=== PATIENT | male | born 1930 | race Caucasian/White ===

== ENCOUNTER 2018-01-15 05:03 | Inpatient (IN) | payer MEDICARE, MEDICAID ==
[~2018-01-15] VITALS: Ht 177.8 cm; Wt 86.8 kg
[~2018-01-15 05:03] MED LIST: ASPI-515 PO; CLOP75TA PO; FAMO-79 PO; FENO145T30 PO; FURO20TA3 PO; HYDR-882 PO; ISOS30TA PO; ISOS60TA36 PO; LISI-466 PO; METO25TA35 PO; METO50TA82 PO; MULT-208 PO; NIAC500T9 PO; NITR0.4T SL; POTA10TA5 PO; RANO10002 PO; SIMV40TA PO; TAMS-11 PO
[2018-01-15 06:41] VITALS: BP 111/84
[2018-01-15] MEDS ORDERED: EZET10TA18 PO (07:14)
[2018-01-15] MEDS ORDERED: LOSA25TA6 PO (07:14)
[2018-01-15] MEDS ORDERED: POTA10CA PO (07:14)
[2018-01-15] MEDS ORDERED: TEMAZEPAM 15 MG CAPSULE PO PRN (08:30)
[2018-01-15] MEDS ORDERED: ONDANSETRON 2MG/ML, 2ML IVPush PRN (08:30)
[2018-01-15] MEDS ORDERED: LABETALOL 5MG/ML, 20ML IVPush PRN (08:30)
[2018-01-15] MEDS ORDERED: ACETAMINOPHEN 325 MG TABLET PO PRN (08:30)
[2018-01-15] MEDS ORDERED: ONDANSETRON ODT 4 MG PO PRN (08:30)
[2018-01-15] MEDS ORDERED: NITROGLYCERIN 0.4 MG BOTTLE (25 TABS) SL SCH (08:30)
[2018-01-15] MEDS ORDERED: NITROGLYCERIN 0.4 MG BOTTLE (25 TABS) SL PRN (08:30)
[2018-01-15 09:10] LABS: ANION GAP 9 mmol/L (5-15); CALCIUM 9.3 mg/dL (8.5-10.1); CHLORIDE 108 mmol/L (98-107); CHOLESTEROL, TOTAL 93 mg/dL (140-239); CREATININE 1.48 mg/dL (0.7-1.3); TRIGLYCERIDES 153 mg/dL (50-200); VLDL CHOLESTEROL 31 mg/dL (0-25)
[2018-01-15 09:14] LABS: CHOL/HDL RATIO 1.8; HDL CHOL % 57 % (26-37); HDL CHOLESTEROL (DIRECT) 53 mg/dL (40-60); LDL CHOLESTEROL,CALCULATED 9 mg/dL (54-169); LDL/HDL RATIO 0.2 (0.5-3.0); TROPONIN I 0.374 ng/mL (0.000-0.045)
[2018-01-15] MEDS: FAMOTIDINE 20 MG TABLET PO SCH ×2 (09:36→19:31)
[2018-01-15] MEDS: RANOLAZINE 500 MG TAB.ER.12H PO SCH ×2 (09:36→19:31)
[2018-01-15] MEDS: ASPIRIN 81 MG TABLET EC PO SCH (09:36)
[2018-01-15] MEDS: LOSARTAN 25MG TABLET PO SCH (09:36)
[2018-01-15] MEDS: EZETIMIBE 10 MG TABLET PO SCH (09:36)
[2018-01-15] MEDS: METOPROLOL TARTRATE 25 MG TABLET PO SCH ×2 (09:37→19:31)
[2018-01-15 13:00] VITALS: BP 104/65
[2018-01-15 19:25] VITALS: BP 113/68
[2018-01-15] MEDS ORDERED: SIMVASTATIN 40 MG TABLET PO SCH (21:00)
[2018-01-16 01:11] VITALS: BP 109/65
[2018-01-16 06:50] VITALS: BP 118/73
[2018-01-16] MEDS: METOPROLOL TARTRATE 25 MG TABLET PO SCH ×2 (09:00→20:45)
[2018-01-16] MEDS: FAMOTIDINE 20 MG TABLET PO SCH ×2 (09:08→20:44)
[2018-01-16] MEDS: LOSARTAN 25MG TABLET PO SCH (09:09)
[2018-01-16] MEDS: RANOLAZINE 500 MG TAB.ER.12H PO SCH ×2 (09:09→20:44)
[2018-01-16] MEDS: ASPIRIN 81 MG TABLET EC PO SCH (09:09)
[2018-01-16] MEDS: EZETIMIBE 10 MG TABLET PO SCH (09:09)
[2018-01-16] MEDS ORDERED: REGADENOSON 0.4 MG/5 ML SYRINGE ONE (11:09)
[2018-01-16 11:25] LABS: TROPONIN I 0.079 ng/mL (0.000-0.045)
[2018-01-16 13:11] VITALS: BP 155/75
[2018-01-16] MEDS: HEPARIN 5,000 UNITS/ML, 1ML SQ SCH ×2 (14:57→22:56)
[2018-01-16 20:39] VITALS: BP 103/70
[2018-01-16] MEDS: ATORVASTATIN 40 MG TABLET PO SCH (20:45)
[2018-01-17 02:41] VITALS: BP 99/63
[2018-01-17 05:18] LABS: BASOPHILS # (AUTO) 0.05 x10^3/uL (0-0.1); BASOPHILS % (AUTO) 1 % (0-1); EOSINOPHILS # (AUTO) 0.24 x10^3/uL (0-0.4); EOSINOPHILS % (AUTO) 3 % (1-7); LYMPHOCYTES # (AUTO) 2.94 x10^3/uL (1-3.4); LYMPHOCYTES % (AUTO) 36 % (22-44); MD NO; MEAN CORPUSCULAR HGB CONC 33.4 g/dL (33.2-36.2); MEAN CORPUSCULAR VOLUME 92.8 fL (81-97); MEAN PLATELET VOLUME 9.1 fL (7.4-10.4); MONOCYTES # (AUTO) 0.88 x10^3/uL (0.2-0.8); MONOCYTES % (AUTO) 11 % (2-9); NEUTROPHILS % (AUTO) 49 % (42-75); PLATELET COUNT 175 x10^3/uL (130-400); RED BLOOD COUNT 4.59 x10^6/uL (4.38-5.82); RED CELL DISTRIBUTION WIDTH 13.8 % (9.4-14.8)
[2018-01-17 05:25] LABS: ALBUMIN 3.4 g/dL (3.4-5.0); ANION GAP 9 mmol/L (5-15); CALCIUM 8.4 mg/dL (8.5-10.1); CHLORIDE 110 mmol/L (98-107)
[2018-01-17 05:30] LABS: ALANINE AMINOTRANSFERASE 18 U/L (12-78); ALKALINE PHOSPHATASE 54 U/L (45-117); BILIRUBIN,TOTAL 0.5 mg/dL (0.2-1.0); CREATININE 1.31 mg/dL (0.7-1.3); TOTAL PROTEIN 6.3 g/dL (6.4-8.2)
[2018-01-17] MEDS: HEPARIN 5,000 UNITS/ML, 1ML SQ SCH ×3 (06:30→23:12)
[2018-01-17 07:34] VITALS: BP 124/76
[2018-01-17] MEDS: EZETIMIBE 10 MG TABLET PO SCH (08:14)
[2018-01-17] MEDS: FAMOTIDINE 20 MG TABLET PO SCH ×2 (08:14→21:27)
[2018-01-17] MEDS: ASPIRIN 81 MG TABLET EC PO SCH (08:14)
[2018-01-17] MEDS: METOPROLOL TARTRATE 25 MG TABLET PO SCH ×2 (08:16→21:27)
[2018-01-17] MEDS: RANOLAZINE 500 MG TAB.ER.12H PO SCH ×2 (08:16→21:27)
[2018-01-17] MEDS: LOSARTAN 25MG TABLET PO SCH (08:17)
[2018-01-17] MEDS ORDERED: SODIUM CHLORIDE 0.9% 1,000 ML IV ONE (10:06)
[2018-01-17] MEDS ORDERED: TICAGRELOR 90 MG TABLET ONE (12:53)
[2018-01-17] MEDS ORDERED: VERAPAMIL 2.5 MG/ML, 2ML ONE (12:53)
[2018-01-17] MEDS ORDERED: BIVALIRUDIN 250 MG ONE ×2 (12:53→14:49)
[2018-01-17] MEDS ORDERED: FENTANYL PF 100 MCG/2ML ONE (12:53)
[2018-01-17] MEDS ORDERED: HEPARIN 1,000 UNITS/ML, 10ML ONE (12:54)
[2018-01-17] MEDS ORDERED: MIDAZOLAM 1 MG/ML, 2ML ONE ×2 (12:55→14:06)
[2018-01-17] MEDS ORDERED: LIDOCAINE-MPF 2%, 2ML ONE (12:55)
[2018-01-17] MEDS ORDERED: SODIUM CHLORIDE 0.9% 1,000 ML IV SCH (14:49)
[2018-01-17 15:00] VITALS: BP 170/88
[2018-01-17 18:42] VITALS: BP 154/74
[2018-01-17] MEDS: ATORVASTATIN 40 MG TABLET PO SCH (21:27)
[2018-01-17] MEDS: TICAGRELOR 90 MG TABLET PO SCH (21:27)
[2018-01-18 02:00] VITALS: BP 134/68
[2018-01-18 05:32] LABS: ALBUMIN 3.2 g/dL (3.4-5.0); ANION GAP 10 mmol/L (5-15); CALCIUM 8.3 mg/dL (8.5-10.1); CHLORIDE 113 mmol/L (98-107)
[2018-01-18 05:34] LABS: CREATININE 1.24 mg/dL (0.7-1.3)
[2018-01-18] MEDS: HEPARIN 5,000 UNITS/ML, 1ML SQ SCH (06:40)
[2018-01-18 07:33] VITALS: BP 164/84
[2018-01-18 08:34] VITALS: BP 171/70
[2018-01-18] MEDS: METOPROLOL TARTRATE 25 MG TABLET PO SCH (08:35)
[2018-01-18] MEDS: EZETIMIBE 10 MG TABLET PO SCH (08:35)
[2018-01-18] MEDS: LOSARTAN 25MG TABLET PO SCH (08:35)
[2018-01-18] MEDS: FAMOTIDINE 20 MG TABLET PO SCH (08:35)
[2018-01-18] MEDS: TICAGRELOR 90 MG TABLET PO SCH (08:35)
[2018-01-18] MEDS: RANOLAZINE 500 MG TAB.ER.12H PO SCH (08:35)
[2018-01-18] MEDS ORDERED: ASPIRIN 81 MG TABLET EC PO SCH (09:00)
[2018-01-18] MEDS ORDERED: ATOR40TA78 PO (10:22)
[2018-01-18] MEDS ORDERED: TICA90TA PO (10:22)
[2018-01-18] MEDS ORDERED: NITR0.4T SL (10:22)
[2018-01-18 10:58] VITALS: BP 112/69
== END 2018-01-18 11:50 | disposition home or self-care (01) | DRG 250 ==
LOC: 5SO 06:24 → DCLOUNGE 01-18 11:32
PROVIDERS: ADMIT Hospitalist; ATTEND Hospitalist
PROC: 02703ZZ Dilation of Coronary Artery, One Artery, Percutaneous Approach (ICD-10-PCS; principal; 2018-01-17)
PROC: 4A023N7 Measurement of Cardiac Sampling and Pressure, Left Heart, Percutaneous Approach (ICD-10-PCS; 2018-01-17)
PROC: B2111ZZ Fluoroscopy of Multiple Coronary Arteries using Low Osmolar Contrast (ICD-10-PCS; 2018-01-17)
PROC: B21F1ZZ Fluoroscopy of Other Bypass Graft using Low Osmolar Contrast (ICD-10-PCS; 2018-01-17)
PROC: B2151ZZ Fluoroscopy of Left Heart using Low Osmolar Contrast (ICD-10-PCS; 2018-01-17)
DX: T82.855A Stenosis of coronary artery stent, initial encounter (principal); I21.4 Non-ST elevation (NSTEMI) myocardial infarction; T82.858A Stenosis of other vascular prosthetic devices, implants and grafts, initial encounter; I25.119 Atherosclerotic heart disease of native coronary artery with unspecified angina pectoris; I50.9 Heart failure, unspecified; I48.91 Unspecified atrial fibrillation; I71.4 Abdominal aortic aneurysm, without rupture; I11.0 Hypertensive heart disease with heart failure; E78.5 Hyperlipidemia, unspecified; K21.9 Gastro-esophageal reflux disease without esophagitis; N40.0 Benign prostatic hyperplasia without lower urinary tract symptoms; N28.9 Disorder of kidney and ureter, unspecified; I65.29 Occlusion and stenosis of unspecified carotid artery; Y83.1 Surgical operation with implant of artificial internal device as the cause of abnormal reaction of the patient, or of later complication, without mention of misadventure at the time of the procedure; Z95.1 Presence of aortocoronary bypass graft
CPT/HCPCS: 36415; 78452; 80048; 80053; 80061; 82040; 84484; 85025; 93005; 93017; 93306; 93459; 99156; 99157; C1769; C1894; G0378; J0583; J1644; J2250; J2785; J3010; J3490; A9502; C1725; C1884; C1887; C9898; J7030; Q9967

== ENCOUNTER 2018-08-26 18:53 | Inpatient (IN) | payer MEDICARE, MEDICAID ==
[~2018-08-26] VITALS: Ht 177.8 cm; Wt 86.0 kg
[~2018-08-26 18:53] MED LIST changes: +ATOR40TA78 PO; +EZET10TA18 PO; +HYDR-3653 PO; -HYDR-882 PO; +LOSA25TA25 PO; +POTA10CA PO; +TICA90TA PO
--- NOTE | 2018-08-26 19:25 | NUR ---
PT BIB [facility]. PT PLACED IN [facility]OSPITAL GOWN. EKG DONE. PT ON CARDIAC AND VITALS MONITORS. BILAT BEDRAILS UP. CALL LIGHT WITHIN REACH.
[2018-08-26] MEDS ORDERED: PANTOPRAZOLE 80 MG in SODIUM CHLORIDE 0.9% 100 ML IV SCH (19:34)
[2018-08-26] MEDS ORDERED: PANTOPRAZOLE 80 MG in SODIUM CHLORIDE 0.9% 50 ML IVPB ONE (19:34)
[2018-08-26] MEDS ORDERED: SODIUM CHLORIDE FLUSH 10ML SYR IVF ONE (20:00)
[2018-08-26 20:19] LABS: BASOPHILS # (AUTO) 0.05 x10^3/uL (0-0.1); BASOPHILS % (AUTO) 1 % (0-1); EOSINOPHILS # (AUTO) 0.08 x10^3/uL (0-0.4); EOSINOPHILS % (AUTO) 1 % (1-7); LYMPHOCYTES # (AUTO) 2.23 x10^3/uL (1-3.4); LYMPHOCYTES % (AUTO) 32 % (22-44); MD NO; MEAN CORPUSCULAR HEMOGLOBIN 31.8 pg (27.5-34.5); MEAN CORPUSCULAR HGB CONC 33.3 g/dL (33.2-36.2); MEAN CORPUSCULAR VOLUME 95.4 fL (81-97); MEAN PLATELET VOLUME 8.4 fL (7.4-10.4); MONOCYTES # (AUTO) 0.69 x10^3/uL (0.2-0.8); MONOCYTES % (AUTO) 10 % (2-9); NEUTROPHILS # (AUTO) 3.93 x10^3/uL (1.8-6.8); NEUTROPHILS % (AUTO) 56 % (42-75); PLATELET COUNT 234 x10^3/uL (130-400); RED BLOOD COUNT 3.24 x10^6/uL (4.38-5.82); RED CELL DISTRIBUTION WIDTH 16.1 % (9.4-14.8)
[2018-08-26 20:26] LABS: INTERNATIONAL NORMALIZED RATIO 1.07 (0.93-1.1); PROTHROMBIN TIME 11.2 Seconds (9.6-11.5)
[2018-08-26 20:28] LABS: ALANINE AMINOTRANSFERASE 17 U/L (12-78); ALBUMIN 3.7 g/dL (3.4-5.0); ANION GAP 7 mmol/L (5-15); CALCIUM 9.1 mg/dL (8.5-10.1); CHLORIDE 109 mmol/L (98-107)
[2018-08-26 20:30] LABS: ALKALINE PHOSPHATASE 47 U/L (45-117); BILIRUBIN,TOTAL 0.4 mg/dL (0.2-1.0); TOTAL PROTEIN 6.2 g/dL (6.4-8.2)
--- NOTE | 2018-08-26 20:40 | NUR ---
PT ABLE TO AMBULATE TO BATHROOM STEADILY WITH STAND BY ASSIST. PT ABLE TO PROVIDE URINE SAMPLE. PT BACK IN BED AND ON MONITORS. ORDERED MEDS INFUSING.
[2018-08-26] MEDS ORDERED: ONDANSETRON 2MG/ML, 2ML IVPush PRN (21:30)
--- NOTE | 2018-08-26 21:32 | NUR ---
PT RESTING CALMLY IN BED. PT AWARE HE IS TO BE ADMITTED. REPORT CALLED TO AMINTA FERGUSON FOR ROOM [phone]
[2018-08-26 22:29] VITALS: BP 135/72
[2018-08-26] MEDS: PANTOPRAZOLE 80 MG in SODIUM CHLORIDE 0.9% 100 ML IV SCH (22:54)
[2018-08-27 00:52] VITALS: BP 94/58
[2018-08-27 05:38] LABS: BASOPHILS # (AUTO) 0.03 x10^3/uL (0-0.1); BASOPHILS % (AUTO) 1 % (0-1); EOSINOPHILS # (AUTO) 0.11 x10^3/uL (0-0.4); EOSINOPHILS % (AUTO) 2 % (1-7); LYMPHOCYTES # (AUTO) 1.85 x10^3/uL (1-3.4); LYMPHOCYTES % (AUTO) 28 % (22-44); MD NO; MEAN CORPUSCULAR HEMOGLOBIN 31.9 pg (27.5-34.5); MEAN CORPUSCULAR HGB CONC 33.7 g/dL (33.2-36.2); MEAN CORPUSCULAR VOLUME 94.8 fL (81-97); MEAN PLATELET VOLUME 8.6 fL (7.4-10.4); MONOCYTES # (AUTO) 0.78 x10^3/uL (0.2-0.8); MONOCYTES % (AUTO) 12 % (2-9); NEUTROPHILS # (AUTO) 3.83 x10^3/uL (1.8-6.8); NEUTROPHILS % (AUTO) 58 % (42-75); PLATELET COUNT 237 x10^3/uL (130-400); RED BLOOD COUNT 3.02 x10^6/uL (4.38-5.82); RED CELL DISTRIBUTION WIDTH 16.3 % (9.4-14.8)
[2018-08-27 05:51] LABS: CHLORIDE 111 mmol/L (98-107)
[2018-08-27 06:00] LABS: ANION GAP 9 mmol/L (5-15); CALCIUM 8.8 mg/dL (8.5-10.1); CREATININE 1.33 mg/dL (0.7-1.3)
[2018-08-27] MEDS: PANTOPRAZOLE 80 MG in SODIUM CHLORIDE 0.9% 100 ML IV SCH ×2 (06:39→17:46)
[2018-08-27 08:00] VITALS: BP 134/65
[2018-08-27 08:29] LABS: TROPONIN I < 0.015 ng/mL (0.000-0.045)
[2018-08-27] MEDS: ISOSORBIDE MONONITRATE ER 30 MG TABLET PO SCH (09:00)
[2018-08-27] MEDS ORDERED: FUROSEMIDE 20 MG TABLET PO SCH (09:00)
[2018-08-27] MEDS ORDERED: EZETIMIBE 10 MG TABLET PO SCH (09:00)
[2018-08-27] MEDS: METOPROLOL TARTRATE 50 MG TABLET PO SCH ×2 (10:12→21:30)
[2018-08-27] MEDS: LOSARTAN 25MG TABLET PO SCH (10:12)
[2018-08-27 11:28] LABS: CHOL/HDL RATIO 3.5
[2018-08-27] MEDS: RANOLAZINE 500 MG TAB.ER.12H PO SCH ×2 (12:53→21:30)
[2018-08-27 13:28] VITALS: BP 104/65
[2018-08-27 21:29] VITALS: BP 107/62
[2018-08-27] MEDS: ATORVASTATIN 20 MG TABLET PO SCH (21:30)
[2018-08-28] MEDS: PANTOPRAZOLE 80 MG in SODIUM CHLORIDE 0.9% 100 ML IV SCH ×2 (03:34→17:06)
[2018-08-28 03:37] VITALS: BP 95/58
[2018-08-28 05:53] LABS: BASOPHILS # (AUTO) 0.04 x10^3/uL (0-0.1); BASOPHILS % (AUTO) 1 % (0-1); EOSINOPHILS # (AUTO) 0.16 x10^3/uL (0-0.4); EOSINOPHILS % (AUTO) 3 % (1-7); LYMPHOCYTES # (AUTO) 2.08 x10^3/uL (1-3.4); LYMPHOCYTES % (AUTO) 34 % (22-44); MD NO; MEAN CORPUSCULAR HEMOGLOBIN 31.6 pg (27.5-34.5); MEAN CORPUSCULAR HGB CONC 33.1 g/dL (33.2-36.2); MEAN CORPUSCULAR VOLUME 95.3 fL (81-97); MEAN PLATELET VOLUME 8.6 fL (7.4-10.4); MONOCYTES # (AUTO) 0.67 x10^3/uL (0.2-0.8); MONOCYTES % (AUTO) 11 % (2-9); NEUTROPHILS # (AUTO) 3.14 x10^3/uL (1.8-6.8); NEUTROPHILS % (AUTO) 52 % (42-75); PLATELET COUNT 212 x10^3/uL (130-400); RED BLOOD COUNT 2.81 x10^6/uL (4.38-5.82); RED CELL DISTRIBUTION WIDTH 16.4 % (9.4-14.8)
[2018-08-28 05:58] LABS: ANION GAP 4 mmol/L (5-15); CALCIUM 8.7 mg/dL (8.5-10.1); CHLORIDE 110 mmol/L (98-107)
[2018-08-28 05:59] LABS: CREATININE 1.13 mg/dL (0.7-1.3)
[2018-08-28 08:02] VITALS: BP 112/68
[2018-08-28] MEDS: METOPROLOL TARTRATE 50 MG TABLET PO SCH ×2 (08:12→21:02)
[2018-08-28] MEDS: RANOLAZINE 500 MG TAB.ER.12H PO SCH ×2 (09:00→21:02)
[2018-08-28] MEDS: LOSARTAN 25MG TABLET PO SCH (09:00)
[2018-08-28] MEDS: ISOSORBIDE MONONITRATE ER 30 MG TABLET PO SCH (09:00)
[2018-08-28 13:10] VITALS: BP 114/71
[2018-08-28] MEDS ORDERED: PROPOFOL 10 MG/ML, 20ML ONE (14:00)
[2018-08-28] MEDS ORDERED: LIDOCAINE-MPF 2% ,5ML ONE (14:00)
[2018-08-28] MEDS ORDERED: ACETAMINOPHEN 325 MG TABLET PO PRN (14:30)
[2018-08-28] MEDS ORDERED: ONDANSETRON 2MG/ML, 2ML IV PRN (14:30)
[2018-08-28] MEDS ORDERED: ONDANSETRON ODT 8 MG PO PRN (14:30)
[2018-08-28] MEDS ORDERED: PROMETHAZINE 25 MG/ML, 1ML IV PRN (14:30)
[2018-08-28] MEDS ORDERED: GOLYTELY 4,000ML ORAL.SOL PO ONE (14:30)
[2018-08-28] MEDS ORDERED: OXYcodone 5 MG/5 ML ORAL.SOL UDC PO PRN (14:30)
[2018-08-28] MEDS: POTASSIUM CHLORIDE 10 MEQ TABLET.ER PO SCH (16:01)
[2018-08-28 20:13] VITALS: BP 115/68
[2018-08-28] MEDS: ATORVASTATIN 20 MG TABLET PO SCH (21:04)
[2018-08-28 21:49] VITALS: BP 116/64
[2018-08-28 21:59] VITALS: BP 112/58
[2018-08-29] VITALS (15 sets, daily range): BP systolic 87–138; BP diastolic 54–75
[2018-08-29] MEDS: PANTOPRAZOLE 80 MG in SODIUM CHLORIDE 0.9% 100 ML IV SCH ×2 (04:30→16:11)
[2018-08-29 06:52] LABS: BASOPHILS # (AUTO) 0.01 x10^3/uL (0-0.1); BASOPHILS % (AUTO) 0 % (0-1); EOSINOPHILS # (AUTO) 0.05 x10^3/uL (0-0.4); EOSINOPHILS % (AUTO) 1 % (1-7); LYMPHOCYTES # (AUTO) 2.31 x10^3/uL (1-3.4); LYMPHOCYTES % (AUTO) 34 % (22-44); MD NO; MEAN CORPUSCULAR HEMOGLOBIN 32.1 pg (27.5-34.5); MEAN CORPUSCULAR VOLUME 94.7 fL (81-97); MEAN PLATELET VOLUME 8.3 fL (7.4-10.4); MONOCYTES % (AUTO) 9 % (2-9); NEUTROPHILS # (AUTO) 3.73 x10^3/uL (1.8-6.8); NEUTROPHILS % (AUTO) 56 % (42-75); PLATELET COUNT 214 x10^3/uL (130-400); RED BLOOD COUNT 2.48 x10^6/uL (4.38-5.82); RED CELL DISTRIBUTION WIDTH 16.5 % (9.4-14.8)
[2018-08-29 07:07] LABS: TROPONIN I < 0.015 ng/mL (0.000-0.045)
[2018-08-29] MEDS: POTASSIUM CHLORIDE 10 MEQ TABLET.ER PO SCH (08:00)
[2018-08-29] MEDS: LOSARTAN 25MG TABLET PO SCH (08:49)
[2018-08-29] MEDS: RANOLAZINE 500 MG TAB.ER.12H PO SCH ×2 (08:49→20:23)
[2018-08-29] MEDS: METOPROLOL TARTRATE 50 MG TABLET PO SCH ×2 (08:49→20:22)
[2018-08-29] MEDS: ISOSORBIDE MONONITRATE ER 30 MG TABLET PO SCH (08:49)
[2018-08-29] MEDS ORDERED: NITROGLYCERIN 0.1 MG/HR PATCH TD ONE (09:00)
[2018-08-29] MEDS ORDERED: PROPOFOL 10 MG/ML, 20ML ONE (11:20)
[2018-08-29] MEDS ORDERED: LABETALOL 5MG/ML, 20ML IV PRN (12:00)
[2018-08-29] MEDS ORDERED: PROMETHAZINE 25 MG/ML, 1ML IV PRN (12:00)
[2018-08-29] MEDS ORDERED: ALBUTEROL SULFATE 2.5 MG/3 ML NPPB PRN (12:00)
[2018-08-29] MEDS ORDERED: OXYcodone 5 MG/5 ML ORAL.SOL UDC PO PRN (12:00)
[2018-08-29] MEDS ORDERED: HALOPERIDOL 5 MG/ML IV PRN (12:00)
[2018-08-29] MEDS ORDERED: hydrALAzine 20 MG/ML, 1ML IV PRN (12:00)
[2018-08-29] MEDS ORDERED: FENTANYL PF 100 MCG/2ML IV PRN (12:00)
[2018-08-29] MEDS ORDERED: OXYcodone 5 MG/5 ML ORAL.SOL UDC ONE (12:09)
[2018-08-29] MEDS ORDERED: FENTANYL PF 100 MCG/2ML ONE (12:09)
[2018-08-29] MEDS: FENTANYL PF 100 MCG/2ML IV PRN ×2 (12:13→12:19)
[2018-08-29] MEDS ORDERED: HYDROmorphone 2 MG/ML, 1ML ONE (12:23)
[2018-08-29] MEDS: HYDROmorphone 2 MG/ML, 1ML IVPush PRN ×3 (12:26→12:43)
[2018-08-29 14:29] LABS: TROPONIN I 0.016 ng/mL (0.000-0.045)
[2018-08-29 18:55] LABS: TROPONIN I 0.123 ng/mL (0.000-0.045)
[2018-08-29] MEDS ORDERED: morphine SULFATE 10 MG/ML, 1ML IVPush ONE (19:30)
[2018-08-29] MEDS: ATORVASTATIN 20 MG TABLET PO SCH (20:22)
[2018-08-30 00:57] VITALS: BP 91/55
[2018-08-30] MEDS: PANTOPRAZOLE 80 MG in SODIUM CHLORIDE 0.9% 100 ML IV SCH (02:42)
[2018-08-30 05:38] LABS: BASOPHILS # (AUTO) 0.04 x10^3/uL (0-0.1); BASOPHILS % (AUTO) 1 % (0-1); EOSINOPHILS # (AUTO) 0.18 x10^3/uL (0-0.4); EOSINOPHILS % (AUTO) 3 % (1-7); LYMPHOCYTES # (AUTO) 1.98 x10^3/uL (1-3.4); LYMPHOCYTES % (AUTO) 31 % (22-44); MD NO; MEAN CORPUSCULAR HGB CONC 33.8 g/dL (33.2-36.2); MEAN CORPUSCULAR VOLUME 97.7 fL (81-97); MEAN PLATELET VOLUME 8.7 fL (7.4-10.4); MONOCYTES # (AUTO) 0.74 x10^3/uL (0.2-0.8); MONOCYTES % (AUTO) 12 % (2-9); NEUTROPHILS # (AUTO) 3.46 x10^3/uL (1.8-6.8); NEUTROPHILS % (AUTO) 54 % (42-75); PLATELET COUNT 174 x10^3/uL (130-400); RED BLOOD COUNT 2.94 x10^6/uL (4.38-5.82); RED CELL DISTRIBUTION WIDTH 16.2 % (9.4-14.8)
[2018-08-30 07:05] VITALS: BP 110/59
[2018-08-30 08:32] LABS: TROPONIN I 0.249 ng/mL (0.000-0.045)
[2018-08-30] MEDS: ISOSORBIDE MONONITRATE ER 30 MG TABLET PO SCH (08:57)
[2018-08-30] MEDS: RANOLAZINE 500 MG TAB.ER.12H PO SCH ×2 (08:57→20:00)
[2018-08-30] MEDS: POTASSIUM CHLORIDE 10 MEQ TABLET.ER PO SCH (08:57)
[2018-08-30] MEDS: LOSARTAN 25MG TABLET PO SCH (08:58)
[2018-08-30] MEDS: METOPROLOL TARTRATE 50 MG TABLET PO SCH ×2 (08:58→20:01)
[2018-08-30] MEDS ORDERED: MORPHINE SULFATE 4 MG/ML, 1ML IVPush PRN (10:30)
[2018-08-30] MEDS: NITROGLYCERIN 0.1 MG/HR PATCH TD SCH (11:21)
[2018-08-30 13:22] LABS: TROPONIN I 0.156 ng/mL (0.000-0.045)
[2018-08-30 14:24] VITALS: BP 90/49
[2018-08-30 15:30] VITALS: BP 100/61
[2018-08-30 19:07] LABS: TROPONIN I 0.185 ng/mL (0.000-0.045)
[2018-08-30 19:13] VITALS: BP 106/55
[2018-08-30] MEDS: PANTOPRAZOLE 20MG TABLET PO SCH (20:00)
[2018-08-30] MEDS: ATORVASTATIN 20 MG TABLET PO SCH (20:01)
[2018-08-30 23:55] VITALS: BP 101/55
[2018-08-31 05:12] LABS: BASOPHILS # (AUTO) 0.03 x10^3/uL (0-0.1); BASOPHILS % (AUTO) 1 % (0-1); EOSINOPHILS % (AUTO) 3 % (1-7); LYMPHOCYTES # (AUTO) 1.89 x10^3/uL (1-3.4); LYMPHOCYTES % (AUTO) 31 % (22-44); MD NO; MEAN CORPUSCULAR VOLUME 97.2 fL (81-97); MEAN PLATELET VOLUME 8.4 fL (7.4-10.4); MONOCYTES # (AUTO) 0.66 x10^3/uL (0.2-0.8); MONOCYTES % (AUTO) 11 % (2-9); NEUTROPHILS # (AUTO) 3.42 x10^3/uL (1.8-6.8); NEUTROPHILS % (AUTO) 55 % (42-75); PLATELET COUNT 179 x10^3/uL (130-400); RED BLOOD COUNT 2.86 x10^6/uL (4.38-5.82); RED CELL DISTRIBUTION WIDTH 16.3 % (9.4-14.8)
[2018-08-31 05:21] LABS: CHLORIDE 114 mmol/L (98-107)
[2018-08-31 05:26] LABS: ANION GAP 6 mmol/L (5-15); CALCIUM 7.9 mg/dL (8.5-10.1); CREATININE 1.12 mg/dL (0.7-1.3)
[2018-08-31 08:02] VITALS: BP 117/70
[2018-08-31] MEDS: ISOSORBIDE MONONITRATE ER 30 MG TABLET PO SCH (09:06)
[2018-08-31] MEDS: PANTOPRAZOLE 20MG TABLET PO SCH ×2 (09:06→20:05)
[2018-08-31] MEDS: POTASSIUM CHLORIDE 10 MEQ TABLET.ER PO SCH (09:06)
[2018-08-31] MEDS: LOSARTAN 25MG TABLET PO SCH (09:07)
[2018-08-31] MEDS: METOPROLOL TARTRATE 50 MG TABLET PO SCH ×2 (09:07→20:04)
[2018-08-31] MEDS: RANOLAZINE 500 MG TAB.ER.12H PO SCH ×2 (09:07→20:05)
[2018-08-31] MEDS: NITROGLYCERIN 0.1 MG/HR PATCH TD SCH (12:00)
[2018-08-31 15:00] VITALS: BP 101/52
[2018-08-31 19:00] VITALS: BP 105/58
[2018-08-31] MEDS: ATORVASTATIN 20 MG TABLET PO SCH (20:04)
[2018-08-31 23:02] VITALS: BP 113/63
[2018-08-31] MEDS: NITROGLYCERIN 0.4 MG BOTTLE (25 TABS) SL PRN (23:03)
[2018-09-01] VITALS (7 sets, daily range): BP systolic 93–144; BP diastolic 51–75
[2018-09-01] MEDS: NITROGLYCERIN 0.4 MG BOTTLE (25 TABS) SL PRN (02:43)
[2018-09-01 05:28] LABS: BASOPHILS # (AUTO) 0.03 x10^3/uL (0-0.1); BASOPHILS % (AUTO) 0 % (0-1); EOSINOPHILS # (AUTO) 0.17 x10^3/uL (0-0.4); EOSINOPHILS % (AUTO) 2 % (1-7); LYMPHOCYTES % (AUTO) 28 % (22-44); MD NO; MEAN CORPUSCULAR HEMOGLOBIN 33.4 pg (27.5-34.5); MEAN CORPUSCULAR HGB CONC 33.9 g/dL (33.2-36.2); MEAN CORPUSCULAR VOLUME 98.5 fL (81-97); MEAN PLATELET VOLUME 8.6 fL (7.4-10.4); MONOCYTES # (AUTO) 0.64 x10^3/uL (0.2-0.8); MONOCYTES % (AUTO) 8 % (2-9); NEUTROPHILS # (AUTO) 4.85 x10^3/uL (1.8-6.8); NEUTROPHILS % (AUTO) 62 % (42-75); PLATELET COUNT 211 x10^3/uL (130-400); RED BLOOD COUNT 3.13 x10^6/uL (4.38-5.82); RED CELL DISTRIBUTION WIDTH 16.5 % (9.4-14.8)
[2018-09-01 05:30] LABS: CHLORIDE 112 mmol/L (98-107)
[2018-09-01 05:37] LABS: ANION GAP 10 mmol/L (5-15); CALCIUM 8.4 mg/dL (8.5-10.1); CREATININE 1.54 mg/dL (0.7-1.3)
[2018-09-01] MEDS: PANTOPRAZOLE 20MG TABLET PO SCH ×2 (08:52→21:01)
[2018-09-01] MEDS: LOSARTAN 25MG TABLET PO SCH (08:52)
[2018-09-01] MEDS: POTASSIUM CHLORIDE 10 MEQ TABLET.ER PO SCH (08:52)
[2018-09-01] MEDS: ISOSORBIDE MONONITRATE ER 30 MG TABLET PO SCH (08:53)
[2018-09-01] MEDS: RANOLAZINE 500 MG TAB.ER.12H PO SCH ×2 (08:53→21:02)
[2018-09-01] MEDS: METOPROLOL TARTRATE 50 MG TABLET PO SCH ×2 (08:54→21:01)
[2018-09-01] MEDS: ASPIRIN 81 MG TABLET EC PO SCH (09:06)
[2018-09-01] MEDS: NITROGLYCERIN 0.1 MG/HR PATCH TD SCH (12:27)
[2018-09-01] MEDS ORDERED: POLYETHYLENE GLYCOL 17 GM PACKET PO ONE (15:00)
[2018-09-01 15:25] LABS: TROPONIN I 0.122 ng/mL (0.000-0.045)
[2018-09-01 15:35] LABS: TROPONIN I 0.117 ng/mL (0.000-0.045)
[2018-09-01] MEDS: ATORVASTATIN 20 MG TABLET PO SCH (21:01)
[2018-09-01] MEDS: DOCUSATE 100 MG CAPSULE PO SCH (21:02)
[2018-09-02 02:52] VITALS: BP 110/69
[2018-09-02 07:04] VITALS: BP 100/62
[2018-09-02 07:22] LABS: ANION GAP 7 mmol/L (5-15); CALCIUM 8.3 mg/dL (8.5-10.1); CHLORIDE 111 mmol/L (98-107)
[2018-09-02 07:25] LABS: CREATININE 1.25 mg/dL (0.7-1.3)
[2018-09-02 07:37] VITALS: BP 121/66
[2018-09-02 07:39] VITALS: BP 111/68
[2018-09-02 07:42] VITALS: BP 96/60
[2018-09-02 08:07] LABS: BASOPHILS # (AUTO) 0.02 x10^3/uL (0-0.1); BASOPHILS % (AUTO) 0 % (0-1); EOSINOPHILS # (AUTO) 0.15 x10^3/uL (0-0.4); EOSINOPHILS % (AUTO) 2 % (1-7); LYMPHOCYTES # (AUTO) 2.01 x10^3/uL (1-3.4); LYMPHOCYTES % (AUTO) 28 % (22-44); MD NO; MEAN CORPUSCULAR HEMOGLOBIN 33.2 pg (27.5-34.5); MEAN CORPUSCULAR HGB CONC 33.4 g/dL (33.2-36.2); MEAN CORPUSCULAR VOLUME 99.2 fL (81-97); MEAN PLATELET VOLUME 8.9 fL (7.4-10.4); MONOCYTES # (AUTO) 0.61 x10^3/uL (0.2-0.8); MONOCYTES % (AUTO) 9 % (2-9); NEUTROPHILS # (AUTO) 4.41 x10^3/uL (1.8-6.8); NEUTROPHILS % (AUTO) 61 % (42-75); PLATELET COUNT 227 x10^3/uL (130-400); RED BLOOD COUNT 3.38 x10^6/uL (4.38-5.82); RED CELL DISTRIBUTION WIDTH 17.7 % (9.4-14.8)
[2018-09-02] MEDS ORDERED: ISOS30TA8 PO (08:38)
[2018-09-02] MEDS ORDERED: PANT40TA3 PO (08:38)
[2018-09-02] MEDS: RANOLAZINE 500 MG TAB.ER.12H PO SCH (08:49)
[2018-09-02] MEDS: PANTOPRAZOLE 20MG TABLET PO SCH (08:50)
[2018-09-02] MEDS: DOCUSATE 100 MG CAPSULE PO SCH (08:50)
[2018-09-02] MEDS: LOSARTAN 25MG TABLET PO SCH (08:50)
[2018-09-02] MEDS: METOPROLOL TARTRATE 50 MG TABLET PO SCH (08:50)
[2018-09-02] MEDS: ASPIRIN 81 MG TABLET EC PO SCH (08:50)
[2018-09-02] MEDS: POTASSIUM CHLORIDE 10 MEQ TABLET.ER PO SCH (08:50)
[2018-09-02] MEDS: ISOSORBIDE MONONITRATE ER 30 MG TABLET PO SCH (08:50)
[2018-09-02] MEDS ORDERED: POLYETHYLENE GLYCOL 17 GM PACKET PO SCH (09:00)
== END 2018-09-02 10:19 | DRG 377 ==
LOC: ED 20:57 → EDIP 21:04 → 4EST 22:02 → DCLOUNGE 09-02 10:00
PROVIDERS: ADMIT Internal Medicine; ATTEND Internal Medicine
PROC: 0DJ08ZZ Inspection of Upper Intestinal Tract, Via Natural or Artificial Opening Endoscopic (ICD-10-PCS; principal; 2018-08-28 14:30)
PROC: 0DJD8ZZ Inspection of Lower Intestinal Tract, Via Natural or Artificial Opening Endoscopic (ICD-10-PCS; 2018-08-29)
PROC: 30233N1 Transfusion of Nonautologous Red Blood Cells into Peripheral Vein, Percutaneous Approach (ICD-10-PCS; 2018-08-29)
DX: K92.1 Melena (principal); I21.A1 Myocardial infarction type 2; N17.0 Acute kidney failure with tubular necrosis; I25.110 Atherosclerotic heart disease of native coronary artery with unstable angina pectoris; D62 Acute posthemorrhagic anemia; I50.32 Chronic diastolic (congestive) heart failure; D68.59 Other primary thrombophilia; T82.858A Stenosis of other vascular prosthetic devices, implants and grafts, initial encounter; K57.30 Diverticulosis of large intestine without perforation or abscess without bleeding; I48.0 Paroxysmal atrial fibrillation; I35.0 Nonrheumatic aortic (valve) stenosis; I73.9 Peripheral vascular disease, unspecified; I71.4 Abdominal aortic aneurysm, without rupture; I95.9 Hypotension, unspecified; I11.0 Hypertensive heart disease with heart failure; Y83.1 Surgical operation with implant of artificial internal device as the cause of abnormal reaction of the patient, or of later complication, without mention of misadventure at the time of the procedure; E78.5 Hyperlipidemia, unspecified; N40.0 Benign prostatic hyperplasia without lower urinary tract symptoms; I44.0 Atrioventricular block, first degree; K21.9 Gastro-esophageal reflux disease without esophagitis; Z96.649 Presence of unspecified artificial hip joint; Z66 Do not resuscitate; K22.70 Barrett's esophagus without dysplasia; K64.8 Other hemorrhoids; Z95.5 Presence of coronary angioplasty implant and graft; Z79.01 Long term (current) use of anticoagulants; Z95.1 Presence of aortocoronary bypass graft; Z82.49 Family history of ischemic heart disease and other diseases of the circulatory system; Z79.899 Other long term (current) drug therapy; Z87.891 Personal history of nicotine dependence; Y92.89 Other specified places as the place of occurrence of the external cause
CPT/HCPCS: 36415; 71045; 76705; 80048; 80053; 80061; 84484; 85014; 85018; 85025; 85610; 86850; 86900; 86923; 93005; 93306; 96365; G0378; J1170; J2704; J3010; C9113; P9016

== ENCOUNTER 2019-12-12 17:46 | Inpatient (IN) | payer MEDICARE, MEDICAID ==
[~2019-12-12] VITALS: Ht 179.1 cm; Wt 72.4 kg
[~2019-12-12 17:46] MED LIST changes: +APIX5TAB PO; +ASPI81TA45 PO; +ATOR-2 PO; +CARV12.52 PO; -EZET10TA18 PO; +EZET10TA70 PO; +FENO145T19 PO; -FENO145T30 PO; +ISOS10TA2 PO; +ISOS30TA8 PO; -NITR0.4T SL; +NITR0.4T28 SL; +NITR0.4T41 SL; +PANT40TA3 PO; +SUCR1ORA5 PO; +[UNRECOGNIZED DRUG - OTHER]
[2019-12-12 21:38] VITALS: BP 122/74
[2019-12-12] MEDS ORDERED: POTASSIUM CHLORIDE 20 MEQ PACKET PO ONE (23:00)
[2019-12-12] MEDS: PANTOPRAZOLE 40MG TABLET PO SCH (23:00)
[2019-12-12] MEDS ORDERED: ONDANSETRON 2MG/ML, 2ML IVPush PRN (23:00)
[2019-12-12] MEDS: SUCRALFATE 1 GM/10 ML UDC PO SCH (23:00)
[2019-12-12] MEDS ORDERED: POLYETHYLENE GLYCOL 17 GM PACKET PO PRN (23:00)
[2019-12-12] MEDS ORDERED: BISACODYL 10 MG SUPP PR PRN (23:00)
[2019-12-13 00:15] VITALS: BP 132/84
[2019-12-13] MEDS ORDERED: MAGNESIUM SULFATE PMX 2GM/50ML 50 ML IV ONE (00:30)
[2019-12-13] MEDS: ISOSORBIDE DINITRATE 10 MG TABLET PO SCH ×4 (01:57→20:18)
[2019-12-13] MEDS: CARVEDILOL 12.5 MG TABLET PO SCH ×3 (01:57→20:18)
[2019-12-13] MEDS: RANOLAZINE 500 MG TAB.ER.12H PO SCH ×3 (01:58→20:18)
[2019-12-13 05:44] LABS: MEAN CORPUSCULAR HEMOGLOBIN 27.7 pg (27.5-34.5); MEAN CORPUSCULAR HGB CONC 31.7 g/dL (33.2-36.2); MEAN CORPUSCULAR VOLUME 87.2 fL (81-97); MEAN PLATELET VOLUME 9.4 fL (7.4-10.4); PLATELET COUNT 191 x10^3/uL (130-400); RED BLOOD COUNT 4.42 x10^6/uL (4.38-5.82); RED CELL DISTRIBUTION WIDTH 22.6 % (9.4-14.8)
[2019-12-13 05:50] LABS: ANION GAP 8 mmol/L (5-15); CALCIUM 8.8 mg/dL (8.5-10.1); CHLORIDE 105 mmol/L (98-107); CREATININE 0.92 mg/dL (0.7-1.3)
[2019-12-13 06:17] LABS: BASOPHILS # (AUTO) 0.03 x10^3/uL (0-0.1); BASOPHILS % (AUTO) 0 % (0-1); EOSINOPHILS # (AUTO) 0.09 x10^3/uL (0-0.4); EOSINOPHILS % (AUTO) 1 % (1-7); LYMPHOCYTES # (AUTO) 1.74 x10^3/uL (1-3.4); LYMPHOCYTES % (AUTO) 23 % (22-44); MD SCAN; MONOCYTES # (AUTO) 0.72 x10^3/uL (0.2-0.8); MONOCYTES % (AUTO) 9 % (2-9); NEUTROPHILS # (AUTO) 5.08 x10^3/uL (1.8-6.8); NEUTROPHILS % (AUTO) 66 % (42-75)
[2019-12-13] MEDS: SUCRALFATE 1 GM/10 ML UDC PO SCH ×4 (07:00→20:18)
[2019-12-13 09:27] VITALS: BP 136/87
[2019-12-13] MEDS: EZETIMIBE 10 MG TABLET PO SCH (10:02)
[2019-12-13] MEDS: ASPIRIN 81 MG TABLET EC PO SCH (10:02)
[2019-12-13] MEDS: PANTOPRAZOLE 40MG TABLET PO SCH ×2 (10:02→20:18)
[2019-12-13] MEDS: FUROSEMIDE 40 MG TABLET PO SCH ×2 (10:02→15:29)
[2019-12-13] MEDS ORDERED: POTASSIUM CHLORIDE 40 MEQ in SODIUM CHLORIDE 0.9% 500 ML IV ONE (11:00)
[2019-12-13] MEDS ORDERED: OMNIPAQUE 350 MG/ML, 100ML BOTTLE ONE ×2 (15:15→15:36)
[2019-12-13 15:18] VITALS: BP 120/70
[2019-12-13 18:47] VITALS: BP 109/69
[2019-12-13 19:56] LABS: ANION GAP 6 mmol/L (5-15); CALCIUM 8.2 mg/dL (8.5-10.1); CHLORIDE 107 mmol/L (98-107); CREATININE 1.02 mg/dL (0.7-1.3)
[2019-12-13] MEDS: ATORVASTATIN 80 MG TABLET PO SCH (20:18)
[2019-12-14 00:24] VITALS: BP 106/65
[2019-12-14 05:35] LABS: ALBUMIN 2.8 g/dL (3.4-5.0); ANION GAP 6 mmol/L (5-15); CALCIUM 8.1 mg/dL (8.5-10.1); CHLORIDE 107 mmol/L (98-107)
[2019-12-14 05:38] LABS: ALANINE AMINOTRANSFERASE 15 U/L (12-78); ALKALINE PHOSPHATASE 39 U/L (45-117); BILIRUBIN,TOTAL 0.8 mg/dL (0.2-1.0); CREATININE 1.09 mg/dL (0.7-1.3)
[2019-12-14 05:40] LABS: MEAN CORPUSCULAR HEMOGLOBIN 27.9 pg (27.5-34.5); MEAN CORPUSCULAR VOLUME 87.3 fL (81-97); MEAN PLATELET VOLUME 9.7 fL (7.4-10.4); PLATELET COUNT 172 x10^3/uL (130-400); RED BLOOD COUNT 4.01 x10^6/uL (4.38-5.82); RED CELL DISTRIBUTION WIDTH 22.1 % (9.4-14.8)
[2019-12-14 06:04] LABS: BASOPHILS # (AUTO) 0.01 x10^3/uL (0-0.1); BASOPHILS % (AUTO) 0 % (0-1); EOSINOPHILS # (AUTO) 0.09 x10^3/uL (0-0.4); EOSINOPHILS % (AUTO) 2 % (1-7); LYMPHOCYTES # (AUTO) 1.24 x10^3/uL (1-3.4); LYMPHOCYTES % (AUTO) 24 % (22-44); MD NO; MONOCYTES % (AUTO) 11 % (2-9); NEUTROPHILS % (AUTO) 63 % (42-75)
[2019-12-14 06:43] VITALS: BP 100/61
[2019-12-14] MEDS: SUCRALFATE 1 GM/10 ML UDC PO SCH ×4 (09:15→21:59)
[2019-12-14] MEDS: CARVEDILOL 12.5 MG TABLET PO SCH ×3 (09:17→22:00)
[2019-12-14] MEDS ORDERED: POTASSIUM CHLORIDE 40 MEQ in SODIUM CHLORIDE 0.9% 500 ML IV ONE (09:30)
[2019-12-14] MEDS: EZETIMIBE 10 MG TABLET PO SCH (09:37)
[2019-12-14] MEDS: ISOSORBIDE DINITRATE 10 MG TABLET PO SCH ×4 (09:37→21:59)
[2019-12-14] MEDS: FUROSEMIDE 40 MG TABLET PO SCH ×3 (09:37→22:00)
[2019-12-14] MEDS: PANTOPRAZOLE 40MG TABLET PO SCH ×2 (09:37→21:59)
[2019-12-14] MEDS: RANOLAZINE 500 MG TAB.ER.12H PO SCH ×2 (09:37→21:59)
[2019-12-14] MEDS: ASPIRIN 81 MG TABLET EC PO SCH (09:37)
[2019-12-14 12:05] VITALS: BP 115/69
[2019-12-14] MEDS: GUAIFENESIN 200 MG TABLET PO SCH ×2 (16:53→21:59)
[2019-12-14 19:45] VITALS: BP 90/59
[2019-12-14] MEDS: ATORVASTATIN 80 MG TABLET PO SCH (22:00)
[2019-12-14 22:06] VITALS: BP 97/63
[2019-12-15 01:33] VITALS: BP 96/52
[2019-12-15 05:52] LABS: CHLORIDE 106 mmol/L (98-107)
[2019-12-15 05:59] LABS: ALANINE AMINOTRANSFERASE 16 U/L (12-78); ALKALINE PHOSPHATASE 39 U/L (45-117); ANION GAP 6 mmol/L (5-15); BILIRUBIN,TOTAL 0.9 mg/dL (0.2-1.0); CALCIUM 8.4 mg/dL (8.5-10.1); CREATININE 0.91 mg/dL (0.7-1.3); TOTAL PROTEIN 5.6 g/dL (6.4-8.2)
[2019-12-15] MEDS: GUAIFENESIN 200 MG TABLET PO SCH ×3 (06:00→16:00)
[2019-12-15 06:07] LABS: BASOPHILS % (AUTO) 0 % (0-1); EOSINOPHILS # (AUTO) 0.01 x10^3/uL (0-0.4); EOSINOPHILS % (AUTO) 0 % (1-7); LYMPHOCYTES # (AUTO) 0.72 x10^3/uL (1-3.4); LYMPHOCYTES % (AUTO) 7 % (22-44); MD NO; MEAN CORPUSCULAR HEMOGLOBIN 28.2 pg (27.5-34.5); MEAN CORPUSCULAR HGB CONC 32.3 g/dL (33.2-36.2); MEAN CORPUSCULAR VOLUME 87.2 fL (81-97); MONOCYTES # (AUTO) 0.81 x10^3/uL (0.2-0.8); MONOCYTES % (AUTO) 8 % (2-9); NEUTROPHILS # (AUTO) 8.67 x10^3/uL (1.8-6.8); NEUTROPHILS % (AUTO) 85 % (42-75); PLATELET COUNT 172 x10^3/uL (130-400); RED CELL DISTRIBUTION WIDTH 21.9 % (9.4-14.8)
[2019-12-15 07:00] VITALS: BP 100/55
[2019-12-15] MEDS: SUCRALFATE 1 GM/10 ML UDC PO SCH ×3 (07:00→16:28)
[2019-12-15 08:40] VITALS: BP 102/57
[2019-12-15] MEDS: ISOSORBIDE DINITRATE 10 MG TABLET PO SCH ×2 (08:42→16:28)
[2019-12-15] MEDS: FUROSEMIDE 40 MG TABLET PO SCH (08:42)
[2019-12-15] MEDS: CARVEDILOL 12.5 MG TABLET PO SCH (08:43)
[2019-12-15] MEDS ORDERED: CHLORHEXIDINE 15 ML UDC ONE (11:37)
[2019-12-15] MEDS ORDERED: SUCCINYLCHOLINE 20 MG/ML, 10ML ONE (11:55)
[2019-12-15] MEDS ORDERED: ROCURONIUM 10 MG/ML,10ML ONE (11:55)
[2019-12-15] MEDS ORDERED: ETOMIDATE 40 MG/20 ML ONE (11:55)
[2019-12-15] MEDS ORDERED: PHENYLEPHRINE 10 MG/ML ONE (11:55)
[2019-12-15 13:36] VITALS: BP 99/61
[2019-12-15] MEDS: PANTOPRAZOLE 40MG TABLET PO SCH (13:39)
[2019-12-15] MEDS: ASPIRIN 81 MG TABLET EC PO SCH (13:39)
[2019-12-15] MEDS: EZETIMIBE 10 MG TABLET PO SCH (13:40)
[2019-12-15] MEDS: RANOLAZINE 500 MG TAB.ER.12H PO SCH (13:40)
[2019-12-15] MEDS ORDERED: GUAI200T37 PO (14:50)
[2019-12-15] MEDS ORDERED: FURO20TA3 PO (14:50)
[2019-12-15] MEDS ORDERED: FUROSEMIDE 20 MG TABLET PO SCH (21:00)
== END 2019-12-15 18:34 | disposition home or self-care (01) | DRG 391 ==
LOC: 4WST 21:26 → 4EST 12-13 00:29 → 5SO 12-14 11:30
PROVIDERS: ADMIT Internal Medicine; ATTEND Internal Medicine
PROC: 0DJ08ZZ Inspection of Upper Intestinal Tract, Via Natural or Artificial Opening Endoscopic (ICD-10-PCS; principal; 2019-12-15 11:00)
DX: K29.70 Gastritis, unspecified, without bleeding (principal); E43 Unspecified severe protein-calorie malnutrition; R13.10 Dysphagia, unspecified; I71.4 Abdominal aortic aneurysm, without rupture; I50.9 Heart failure, unspecified; I11.0 Hypertensive heart disease with heart failure; E78.5 Hyperlipidemia, unspecified; K21.9 Gastro-esophageal reflux disease without esophagitis; F32.9 Major depressive disorder, single episode, unspecified; I25.5 Ischemic cardiomyopathy; I25.10 Atherosclerotic heart disease of native coronary artery without angina pectoris; N40.0 Benign prostatic hyperplasia without lower urinary tract symptoms; K59.00 Constipation, unspecified; Z20.828 Contact with and (suspected) exposure to other viral communicable diseases; Z68.22 Body mass index [BMI] 22.0-22.9, adult; I08.0 Rheumatic disorders of both mitral and aortic valves; I25.2 Old myocardial infarction; I73.9 Peripheral vascular disease, unspecified; R63.3 Feeding difficulties; Z66 Do not resuscitate; Z82.49 Family history of ischemic heart disease and other diseases of the circulatory system; Z87.891 Personal history of nicotine dependence; Z95.1 Presence of aortocoronary bypass graft; Z95.5 Presence of coronary angioplasty implant and graft
CPT/HCPCS: 36415; 71045; 74177; 80048; 80053; 83735; 83880; 85025; 87635; 93005; 93306; G0378; J3480; Q9967; J0330; J2370; J3475; J7040

== ENCOUNTER → 2020-01-08 | Outpatient (CLI) | payer MEDICARE, MEDICAID ==
[~2020-01-08] MED LIST changes: +GUAI200T37 PO
[2020-01-08 15:46] LABS: CHLORIDE 96 mmol/L (98-107)
[2020-01-08 15:47] LABS: MEAN CORPUSCULAR HEMOGLOBIN 28.6 pg (27.5-34.5); MEAN CORPUSCULAR VOLUME 89.5 fL (81-97); MEAN PLATELET VOLUME 9.9 fL (7.4-10.4); PLATELET COUNT 235 x10^3/uL (130-400)
[2020-01-08 15:56] LABS: ALANINE AMINOTRANSFERASE 22 U/L (12-78); ALBUMIN 3.3 g/dL (3.4-5.0); ALKALINE PHOSPHATASE 56 U/L (45-117); ANION GAP 8 mmol/L (5-15); CREATININE 1.16 mg/dL (0.7-1.3)
== END | disposition home or self-care (01) ==
LOC: CFH 14:29
PROVIDERS: ATTEND Internal Medicine Cardiovascular Disease
DX: G31.89 Other specified degenerative diseases of nervous system (principal); I21.4 Non-ST elevation (NSTEMI) myocardial infarction; I25.5 Ischemic cardiomyopathy; I27.20 Pulmonary hypertension, unspecified; R13.10 Dysphagia, unspecified; R41.3 Other amnesia; I70.8 Atherosclerosis of other arteries
CPT/HCPCS: 36415; 70450; 80053; 83880; 85027

== ENCOUNTER 2020-01-10 15:15 | Inpatient (IN) | payer MEDICARE, MEDICAID ==
[~2020-01-10] VITALS: Ht 177.8 cm; Wt 80.1 kg
--- NOTE | 2020-01-10 15:52 | NUR ---
PER PT'S SON DR. BUCKLEY SENT PT OVER FOR FEEDING TUBE PLACEMENT DUE TO FAILURE TO THRIVE. PLACED ON VITAL SIGNS MONITORS. FALL PRECAUTIONS IN PLACE. ERMD AT BEDSIDE FOR EVAL.
[2020-01-10] MEDS ORDERED: SODIUM CHLORIDE 0.9% 1,000 ML IV ONE (15:57)
[2020-01-10] MEDS ORDERED: SODIUM CHLORIDE FLUSH 10ML SYR IVF ONE (16:00)
--- NOTE | 2020-01-10 17:07 | NUR ---
URINE SAMPLE COLLECTED. LAB AT BEDSIDE FOR BLOOD DRAW.
[2020-01-10 17:24] LABS: MICROSCOPIC INDICATED
[2020-01-10 17:35] LABS: INTERNATIONAL NORMALIZED RATIO 1.11 (0.93-1.1); PROTHROMBIN TIME 11.4 Seconds (9.6-11.5)
[2020-01-10 17:37] LABS: ALANINE AMINOTRANSFERASE 23 U/L (12-78); ANION GAP 8 mmol/L (5-15); CALCIUM 9.6 mg/dL (8.5-10.1); CHLORIDE 98 mmol/L (98-107); CREATININE 1.16 mg/dL (0.7-1.3)
[2020-01-10 17:42] LABS: ALKALINE PHOSPHATASE 51 U/L (45-117); TOTAL PROTEIN 6.1 g/dL (6.4-8.2)
[2020-01-10 17:48] LABS: BASOPHILS # (AUTO) 0.03 x10^3/uL (0-0.1); BASOPHILS % (AUTO) 0 % (0-1); EOSINOPHILS # (AUTO) 0.06 x10^3/uL (0-0.4); EOSINOPHILS % (AUTO) 1 % (1-7); LYMPHOCYTES # (AUTO) 1.37 x10^3/uL (1-3.4); LYMPHOCYTES % (AUTO) 18 % (22-44); MD MORPH REVIEW ONLY; MEAN CORPUSCULAR HEMOGLOBIN 28.1 pg (27.5-34.5); MEAN CORPUSCULAR HGB CONC 31.6 g/dL (33.2-36.2); MEAN CORPUSCULAR VOLUME 89.1 fL (81-97); MEAN PLATELET VOLUME 9.4 fL (7.4-10.4); MONOCYTES # (AUTO) 0.68 x10^3/uL (0.2-0.8); MONOCYTES % (AUTO) 9 % (2-9); NEUTROPHILS # (AUTO) 5.67 x10^3/uL (1.8-6.8); NEUTROPHILS % (AUTO) 73 % (42-75); PLATELET COUNT 206 x10^3/uL (130-400); RED BLOOD COUNT 4.33 x10^6/uL (4.38-5.82); RED CELL DISTRIBUTION WIDTH 22.1 % (9.4-14.8)
[2020-01-10 17:49] LABS: ANISOCYTOSIS 1+; POLYCHROMASIA 1+
[2020-01-10 17:50] LABS: OVALOCYTES 1+
[2020-01-10 17:51] LABS: <PLATELET ESTIMATE> ADEQUATE; <PLT MORPHOLOGY> NORMAL PLT MORPH; ECHINOCYTES 1+
[2020-01-10] MEDS ORDERED: SODIUM CHLORIDE FLUSH 10ML SYR IVF PRN (18:30)
--- NOTE | 2020-01-10 18:57 | NUR ---
BREAK RN: REPORT RECEIVED FROM JOSELO ROMAN. PLAN OF CARE DISCUSSED.
--- NOTE | 2020-01-10 19:13 | NUR ---
REPORT TO JOSELO ANDERSON
--- NOTE | 2020-01-10 19:20 | NUR ---
Pt resting in bed, Dr. Wilkes at bedside.
--- NOTE | 2020-01-10 19:23 | NUR ---
Laly [phone]
[2020-01-10] MEDS ORDERED: ACETAMINOPHEN 325 MG TABLET PO PRN (20:00)
[2020-01-10] MEDS ORDERED: LABETALOL 5MG/ML, 20ML IVPush PRN (20:00)
[2020-01-10] MEDS ORDERED: ONDANSETRON 2MG/ML, 2ML IVPush PRN (20:00)
--- NOTE | 2020-01-10 20:27 | NUR ---
Per MD to hold off on fluids due to CHF
--- NOTE | 2020-01-10 20:41 | NUR ---
Report called to [facility] JOSUE
--- NOTE | 2020-01-10 20:44 | NUR ---
Pt able to swallow and clear small sip of apple juice.
[2020-01-10 21:15] VITALS: BP 118/82
[2020-01-10 22:00] VITALS: BP 118/82
[2020-01-10] MEDS: ISOSORBIDE DINITRATE 10 MG TABLET PO SCH (22:19)
[2020-01-10] MEDS: RANOLAZINE 500 MG TAB.ER.12H PO SCH (22:19)
[2020-01-10] MEDS: PANTOPRAZOLE 40MG TABLET PO SCH (22:19)
[2020-01-10] MEDS: SUCRALFATE 1 GM/10 ML UDC PO SCH (22:19)
[2020-01-10] MEDS: GUAIFENESIN 200 MG TABLET PO SCH (22:19)
[2020-01-10] MEDS: FUROSEMIDE 20 MG TABLET PO SCH (22:20)
[2020-01-10] MEDS: CARVEDILOL 12.5 MG TABLET PO SCH (22:20)
[2020-01-10] MEDS: ATORVASTATIN 80 MG TABLET PO SCH (22:20)
[2020-01-11 01:49] VITALS: BP 96/61
[2020-01-11 05:52] LABS: CHLORIDE 97 mmol/L (98-107)
[2020-01-11] MEDS: GUAIFENESIN 200 MG TABLET PO SCH ×4 (06:00→21:18)
[2020-01-11 06:11] LABS: ANION GAP 8 mmol/L (5-15); CALCIUM 9.1 mg/dL (8.5-10.1)
[2020-01-11 06:32] LABS: BASOPHILS # (AUTO) 0.03 x10^3/uL (0-0.1); BASOPHILS % (AUTO) 0 % (0-1); EOSINOPHILS # (AUTO) 0.05 x10^3/uL (0-0.4); EOSINOPHILS % (AUTO) 1 % (1-7); LYMPHOCYTES # (AUTO) 1.26 x10^3/uL (1-3.4); LYMPHOCYTES % (AUTO) 19 % (22-44); MD SCAN; MEAN CORPUSCULAR HEMOGLOBIN 28.6 pg (27.5-34.5); MEAN CORPUSCULAR HGB CONC 32.1 g/dL (33.2-36.2); MEAN CORPUSCULAR VOLUME 89.2 fL (81-97); MEAN PLATELET VOLUME 9.5 fL (7.4-10.4); MONOCYTES # (AUTO) 0.58 x10^3/uL (0.2-0.8); MONOCYTES % (AUTO) 9 % (2-9); NEUTROPHILS # (AUTO) 4.58 x10^3/uL (1.8-6.8); NEUTROPHILS % (AUTO) 70 % (42-75); PLATELET COUNT 175 x10^3/uL (130-400); RED BLOOD COUNT 4.17 x10^6/uL (4.38-5.82); RED CELL DISTRIBUTION WIDTH 22.1 % (9.4-14.8)
[2020-01-11 08:25] VITALS: BP 106/69
[2020-01-11] MEDS: SUCRALFATE 1 GM/10 ML UDC PO SCH ×4 (08:28→21:17)
[2020-01-11] MEDS: CARVEDILOL 12.5 MG TABLET PO SCH ×2 (08:28→21:17)
[2020-01-11] MEDS: FUROSEMIDE 20 MG TABLET PO SCH ×2 (08:29→21:16)
[2020-01-11] MEDS: PANTOPRAZOLE 40MG TABLET PO SCH ×2 (08:29→21:17)
[2020-01-11] MEDS: EZETIMIBE 10 MG TABLET PO SCH (08:29)
[2020-01-11] MEDS: RANOLAZINE 500 MG TAB.ER.12H PO SCH ×2 (08:29→21:17)
[2020-01-11] MEDS: ISOSORBIDE DINITRATE 10 MG TABLET PO SCH ×3 (08:30→21:17)
[2020-01-11 12:53] VITALS: BP 108/70
[2020-01-11 16:31] VITALS: BP 110/68
[2020-01-11 18:20] VITALS: BP 105/66
[2020-01-11] MEDS: ATORVASTATIN 80 MG TABLET PO SCH (21:17)
[2020-01-12 00:58] VITALS: BP 96/62
[2020-01-12] MEDS: GUAIFENESIN 200 MG TABLET PO SCH ×4 (05:16→21:04)
[2020-01-12] MEDS: SUCRALFATE 1 GM/10 ML UDC PO SCH ×4 (05:17→21:04)
[2020-01-12 05:24] LABS: CHLORIDE 98 mmol/L (98-107)
[2020-01-12 05:31] LABS: ANION GAP 7 mmol/L (5-15); CALCIUM 8.8 mg/dL (8.5-10.1); CREATININE 1.09 mg/dL (0.7-1.3)
[2020-01-12 05:37] LABS: MEAN CORPUSCULAR HEMOGLOBIN 28.2 pg (27.5-34.5); MEAN CORPUSCULAR HGB CONC 31.4 g/dL (33.2-36.2); MEAN CORPUSCULAR VOLUME 89.7 fL (81-97); MEAN PLATELET VOLUME 9.5 fL (7.4-10.4); PLATELET COUNT 180 x10^3/uL (130-400); RED BLOOD COUNT 4.17 x10^6/uL (4.38-5.82); RED CELL DISTRIBUTION WIDTH 22.1 % (9.4-14.8)
[2020-01-12 06:28] LABS: BASOPHILS # (AUTO) 0.02 x10^3/uL (0-0.1); BASOPHILS % (AUTO) 0 % (0-1); EOSINOPHILS # (AUTO) 0.05 x10^3/uL (0-0.4); EOSINOPHILS % (AUTO) 1 % (1-7); LYMPHOCYTES # (AUTO) 0.98 x10^3/uL (1-3.4); LYMPHOCYTES % (AUTO) 16 % (22-44); MD SCAN; MONOCYTES # (AUTO) 0.54 x10^3/uL (0.2-0.8); MONOCYTES % (AUTO) 9 % (2-9); NEUTROPHILS % (AUTO) 74 % (42-75)
[2020-01-12 08:14] VITALS: BP 107/68
[2020-01-12] MEDS ORDERED: LABETALOL 5MG/ML, 20ML IV PRN (09:00)
[2020-01-12] MEDS ORDERED: ONDANSETRON 2MG/ML, 2ML IVPush PRN (09:00)
[2020-01-12] MEDS: PANTOPRAZOLE 40MG TABLET PO SCH ×2 (09:00→21:05)
[2020-01-12] MEDS ORDERED: HYDROcodone/APAP 7.5-325MG/15ML UDC PO PRN (09:00)
[2020-01-12] MEDS ORDERED: DIAZEPAM 5 MG/ML, 2ML IVPush PRN (09:00)
[2020-01-12] MEDS ORDERED: OXYcodone 5 MG/5 ML ORAL.SOL UDC PO PRN (09:00)
[2020-01-12] MEDS ORDERED: DIPHENHYDRAMINE 50 MG/ML, 1ML IVPush PRN (09:00)
[2020-01-12] MEDS: ISOSORBIDE DINITRATE 10 MG TABLET PO SCH ×3 (09:00→21:13)
[2020-01-12] MEDS ORDERED: EPHEDRINE 50 MG/ML, 1ML IVPush PRN (09:00)
[2020-01-12] MEDS ORDERED: HALOPERIDOL 5 MG/ML IV PRN (09:00)
[2020-01-12] MEDS: EZETIMIBE 10 MG TABLET PO SCH (09:00)
[2020-01-12] MEDS ORDERED: FENTANYL PF 100 MCG/2ML IV PRN (09:00)
[2020-01-12] MEDS ORDERED: HYDROmorphone 1 MG/ML, 1ML INJ IVPush PRN (09:00)
[2020-01-12] MEDS ORDERED: ALBUTEROL/IPRATROPIUM 2.5MG/0.5MG, 3 ML NPPB PRN (09:00)
[2020-01-12] MEDS ORDERED: CEFTRIAXONE PMX 1GM/50ML 50 ML IV ONE (09:00)
[2020-01-12] MEDS: FUROSEMIDE 20 MG TABLET PO SCH ×2 (09:00→21:13)
[2020-01-12] MEDS ORDERED: LORazepam 2 MG/ML, 1ML IVPush PRN (09:00)
[2020-01-12] MEDS ORDERED: MIDAZOLAM 1 MG/ML, 2ML IV PRN (09:00)
[2020-01-12] MEDS: CARVEDILOL 12.5 MG TABLET PO SCH ×2 (09:00→21:04)
[2020-01-12] MEDS ORDERED: METOCLOPRAMIDE 5 MG/ML, 2ML IVPush PRN (09:00)
[2020-01-12] MEDS: RANOLAZINE 500 MG TAB.ER.12H PO SCH ×2 (09:00→20:53)
[2020-01-12] MEDS ORDERED: CHLORHEXIDINE 15 ML UDC ONE (09:16)
[2020-01-12] MEDS ORDERED: MIDAZOLAM 1 MG/ML, 2ML ONE (09:28)
[2020-01-12] MEDS ORDERED: GLYCOPYRROLATE 0.2MG/1ML, 5ML ONE (09:28)
[2020-01-12] MEDS ORDERED: DEXAMETHASONE 4 MG/ML, 1ML ONE (09:28)
[2020-01-12] MEDS ORDERED: PROPOFOL 10 MG/ML, 20ML ONE (09:28)
[2020-01-12] MEDS ORDERED: LIDOCAINE-MPF 2% ,5ML ONE (09:28)
[2020-01-12] MEDS ORDERED: METHOCARBAMOL 1,000 MG in DEXTROSE 5% 100 ML IV PRN (09:30)
[2020-01-12] MEDS ORDERED: EPHEDRINE 50 MG/ML, 1ML ONE (10:09)
[2020-01-12] MEDS ORDERED: PHENYLEPHRINE 10 MG/ML ONE (10:09)
[2020-01-12 13:29] VITALS: BP_SYST 103; BP_SYST 108; BP_DIAS 69
[2020-01-12 17:10] VITALS: BP 105/68
[2020-01-12 18:49] VITALS: BP 102/68
[2020-01-12] MEDS: ATORVASTATIN 80 MG TABLET PO SCH (21:05)
[2020-01-12] MEDS: MIRTAZAPINE 15 MG TABLET PO SCH (21:05)
[2020-01-13 00:48] VITALS: BP 115/66
[2020-01-13 05:18] LABS: ALANINE AMINOTRANSFERASE 18 U/L (12-78); ALBUMIN 2.6 g/dL (3.4-5.0); ANION GAP 9 mmol/L (5-15); CALCIUM 8.8 mg/dL (8.5-10.1); CHLORIDE 99 mmol/L (98-107); CREATININE 1.01 mg/dL (0.7-1.3)
[2020-01-13] MEDS: GUAIFENESIN 200 MG TABLET PO SCH ×4 (05:21→21:03)
[2020-01-13 05:24] LABS: ALKALINE PHOSPHATASE 45 U/L (45-117); BILIRUBIN,TOTAL 0.7 mg/dL (0.2-1.0); TOTAL PROTEIN 5.5 g/dL (6.4-8.2)
[2020-01-13 06:10] LABS: BASOPHILS # (AUTO) 0.06 x10^3/uL (0-0.1); BASOPHILS % (AUTO) 1 % (0-1); EOSINOPHILS % (AUTO) 0 % (1-7); LYMPHOCYTES # (AUTO) 0.61 x10^3/uL (1-3.4); LYMPHOCYTES % (AUTO) 9 % (22-44); MD SCAN; MEAN CORPUSCULAR HEMOGLOBIN 28.3 pg (27.5-34.5); MEAN CORPUSCULAR HGB CONC 31.5 g/dL (33.2-36.2); MEAN CORPUSCULAR VOLUME 89.7 fL (81-97); MEAN PLATELET VOLUME 10.1 fL (7.4-10.4); MONOCYTES # (AUTO) 0.44 x10^3/uL (0.2-0.8); MONOCYTES % (AUTO) 7 % (2-9); NEUTROPHILS # (AUTO) 5.31 x10^3/uL (1.8-6.8); NEUTROPHILS % (AUTO) 83 % (42-75); PLATELET COUNT 151 x10^3/uL (130-400); RED BLOOD COUNT 4.22 x10^6/uL (4.38-5.82); RED CELL DISTRIBUTION WIDTH 21.9 % (9.4-14.8)
[2020-01-13 07:19] VITALS: BP 104/69
[2020-01-13] MEDS: SUCRALFATE 1 GM/10 ML UDC PO SCH ×4 (08:14→21:05)
[2020-01-13] MEDS: FUROSEMIDE 20 MG TABLET PO SCH ×2 (08:14→21:03)
[2020-01-13 08:15] VITALS: BP 108/68
[2020-01-13] MEDS: CARVEDILOL 12.5 MG TABLET PO SCH ×2 (08:15→21:04)
[2020-01-13] MEDS: ISOSORBIDE DINITRATE 10 MG TABLET PO SCH ×3 (08:15→21:02)
[2020-01-13] MEDS: EZETIMIBE 10 MG TABLET PO SCH (08:15)
[2020-01-13] MEDS: RANOLAZINE 500 MG TAB.ER.12H PO SCH ×2 (09:00→21:04)
[2020-01-13 14:03] VITALS: BP 100/65
[2020-01-13 16:51] VITALS: BP 105/67
[2020-01-13 18:40] VITALS: BP 100/65
[2020-01-13] MEDS: PANTOPRAZOLE GRAN. PKT 40 MG PO SCH (21:04)
[2020-01-13] MEDS: MIRTAZAPINE 15 MG TABLET PO SCH (21:05)
[2020-01-13] MEDS: ATORVASTATIN 80 MG TABLET PO SCH (21:05)
[2020-01-14 00:29] VITALS: BP 97/61
[2020-01-14] MEDS: SUCRALFATE 1 GM/10 ML UDC PO SCH ×4 (05:46→21:28)
[2020-01-14] MEDS: GUAIFENESIN 200 MG TABLET PO SCH ×4 (05:47→21:28)
[2020-01-14 07:00] VITALS: BP 101/63
[2020-01-14] MEDS: PANTOPRAZOLE GRAN. PKT 40 MG PO SCH ×2 (08:17→21:30)
[2020-01-14] MEDS: RANOLAZINE 500 MG TAB.ER.12H PO SCH ×2 (08:17→21:28)
[2020-01-14] MEDS: CARVEDILOL 12.5 MG TABLET PO SCH ×2 (08:18→20:55)
[2020-01-14] MEDS: FUROSEMIDE 20 MG TABLET PO SCH ×2 (08:18→21:29)
[2020-01-14] MEDS: ISOSORBIDE DINITRATE 10 MG TABLET PO SCH ×3 (08:18→21:29)
[2020-01-14] MEDS: EZETIMIBE 10 MG TABLET PO SCH (08:19)
[2020-01-14 12:39] VITALS: BP 106/68
[2020-01-14 19:52] VITALS: BP 93/63
[2020-01-14] MEDS: ATORVASTATIN 80 MG TABLET PO SCH (21:29)
[2020-01-14] MEDS: MIRTAZAPINE 15 MG TABLET PO SCH (21:30)
[2020-01-15 00:40] VITALS: BP 95/60
[2020-01-15 05:25] LABS: ALANINE AMINOTRANSFERASE 23 U/L (12-78); ALBUMIN 2.9 g/dL (3.4-5.0); ANION GAP 7 mmol/L (5-15); CALCIUM 9.1 mg/dL (8.5-10.1); CHLORIDE 97 mmol/L (98-107); CREATININE 1.05 mg/dL (0.7-1.3)
[2020-01-15 05:27] LABS: ALKALINE PHOSPHATASE 60 U/L (45-117); BILIRUBIN,TOTAL 1.2 mg/dL (0.2-1.0); TOTAL PROTEIN 6.5 g/dL (6.4-8.2)
[2020-01-15] MEDS: GUAIFENESIN 200 MG TABLET PO SCH ×4 (06:14→23:38)
[2020-01-15] MEDS: SUCRALFATE 1 GM/10 ML UDC PO SCH ×4 (06:14→23:37)
[2020-01-15 08:24] VITALS: BP 99/64
[2020-01-15] MEDS ORDERED: BISACODYL 10 MG SUPP PR PRN (09:00)
[2020-01-15] MEDS ORDERED: SENNOSIDES 8.6 MG TABLET PO PRN (09:00)
[2020-01-15] MEDS: PANTOPRAZOLE GRAN. PKT 40 MG PO SCH ×2 (09:09→23:39)
[2020-01-15] MEDS: CARVEDILOL 12.5 MG TABLET PO SCH ×2 (09:10→21:00)
[2020-01-15] MEDS: FUROSEMIDE 20 MG TABLET PO SCH ×2 (09:10→23:40)
[2020-01-15] MEDS: EZETIMIBE 10 MG TABLET PO SCH (09:11)
[2020-01-15] MEDS: POLYETHYLENE GLYCOL 17 GM PACKET PO SCH ×2 (09:12→23:37)
[2020-01-15] MEDS: ISOSORBIDE DINITRATE 10 MG TABLET PO SCH ×3 (09:13→23:39)
[2020-01-15] MEDS: RANOLAZINE 500 MG TAB.ER.12H PO SCH ×2 (09:17→23:39)
[2020-01-15 15:43] VITALS: BP 95/59
[2020-01-15 19:38] VITALS: BP 104/62
[2020-01-15] MEDS: MIRTAZAPINE 15 MG TABLET PO SCH (23:39)
[2020-01-15] MEDS: ATORVASTATIN 80 MG TABLET PO SCH (23:39)
[2020-01-16 00:53] VITALS: BP 109/58
[2020-01-16] MEDS: GUAIFENESIN 200 MG TABLET PO SCH ×4 (06:10→22:06)
[2020-01-16] MEDS: SUCRALFATE 1 GM/10 ML UDC PO SCH ×4 (06:10→22:05)
[2020-01-16 06:41] VITALS: BP 97/65
[2020-01-16] MEDS: FUROSEMIDE 20 MG TABLET PO SCH ×2 (08:18→22:05)
[2020-01-16] MEDS: EZETIMIBE 10 MG TABLET PO SCH (08:18)
[2020-01-16] MEDS: RANOLAZINE 500 MG TAB.ER.12H PO SCH ×2 (08:18→22:05)
[2020-01-16] MEDS: PANTOPRAZOLE GRAN. PKT 40 MG PO SCH ×2 (08:18→22:06)
[2020-01-16] MEDS: CARVEDILOL 12.5 MG TABLET PO SCH ×2 (08:18→21:00)
[2020-01-16] MEDS: ISOSORBIDE DINITRATE 10 MG TABLET PO SCH ×3 (08:19→22:06)
[2020-01-16] MEDS: POLYETHYLENE GLYCOL 17 GM PACKET PO SCH ×2 (08:28→21:00)
[2020-01-16 12:42] VITALS: BP 100/61
[2020-01-16 18:50] VITALS: BP 94/60
[2020-01-16] MEDS: MIRTAZAPINE 15 MG TABLET PO SCH (22:05)
[2020-01-16] MEDS: ATORVASTATIN 80 MG TABLET PO SCH (22:05)
[2020-01-17 00:13] VITALS: BP 96/65
[2020-01-17] MEDS: GUAIFENESIN 200 MG TABLET PO SCH ×3 (06:18→17:31)
[2020-01-17] MEDS: SUCRALFATE 1 GM/10 ML UDC PO SCH ×3 (06:18→17:29)
[2020-01-17 07:33] VITALS: BP 98/62
[2020-01-17] MEDS: POLYETHYLENE GLYCOL 17 GM PACKET PO SCH (09:00)
[2020-01-17] MEDS: PANTOPRAZOLE GRAN. PKT 40 MG PO SCH (09:38)
[2020-01-17] MEDS: CARVEDILOL 12.5 MG TABLET PO SCH (09:38)
[2020-01-17] MEDS: ISOSORBIDE DINITRATE 10 MG TABLET PO SCH ×2 (09:38→17:29)
[2020-01-17] MEDS: FUROSEMIDE 20 MG TABLET PO SCH (09:39)
[2020-01-17] MEDS: EZETIMIBE 10 MG TABLET PO SCH (09:39)
[2020-01-17] MEDS: RANOLAZINE 500 MG TAB.ER.12H PO SCH (10:51)
[2020-01-17 14:05] VITALS: BP 101/66
[2020-01-17] MEDS ORDERED: ACET325T26 PO (14:45)
[2020-01-17] MEDS ORDERED: MIRT-34 PO (14:45)
[2020-01-17] MEDS ORDERED: BISA10SU4 PR (14:45)
[2020-01-17] MEDS ORDERED: SENN-99 PO (14:45)
== END 2020-01-17 17:57 | DRG 391 ==
LOC: ED 16:21 → EDIP 18:06 → INTOOBSV 18:06 → 3N 20:57 → OBSVTOIN 01-12 10:56 → 3N 01-12 11:19
PROVIDERS: ADMIT Family Medicine; ATTEND Internal Medicine
PROC: 0DH63UZ Insertion of Feeding Device into Stomach, Percutaneous Approach (ICD-10-PCS; principal; 2020-01-12 10:00)
DX: K21.9 Gastro-esophageal reflux disease without esophagitis (principal); E43 Unspecified severe protein-calorie malnutrition; I50.23 Acute on chronic systolic (congestive) heart failure; K44.9 Diaphragmatic hernia without obstruction or gangrene; R62.7 Adult failure to thrive; R63.0 Anorexia; I11.0 Hypertensive heart disease with heart failure; I35.0 Nonrheumatic aortic (valve) stenosis; I25.5 Ischemic cardiomyopathy; D64.9 Anemia, unspecified; E11.51 Type 2 diabetes mellitus with diabetic peripheral angiopathy without gangrene; E78.5 Hyperlipidemia, unspecified; F32.9 Major depressive disorder, single episode, unspecified; I25.10 Atherosclerotic heart disease of native coronary artery without angina pectoris; R43.0 Anosmia; I71.4 Abdominal aortic aneurysm, without rupture; N40.0 Benign prostatic hyperplasia without lower urinary tract symptoms; R13.10 Dysphagia, unspecified; Z68.25 Body mass index [BMI] 25.0-25.9, adult; Z95.1 Presence of aortocoronary bypass graft; Z87.891 Personal history of nicotine dependence; Z20.828 Contact with and (suspected) exposure to other viral communicable diseases
CPT/HCPCS: 36415; 71045; 80048; 80053; 81001; 83690; 83735; 83880; 84100; 84443; 85025; 85610; 85730; 87077; 87086; 87186; 87635; 93005; B4087; G0378; J0696; J1100; J2250; J2704; J2370